=== PATIENT | male | born 1960 | race Caucasian/White ===

== ENCOUNTER 2021-09-27 08:32 | Day surgery (SDC) | payer BC ==
[~2021-09-27 08:32] MED LIST: Lactated Ringers 1,000 ML IV SCH; Sodium Chloride 0.9% 10 ML Syringe FLUSH PRN
[2021-09-27] MEDS ORDERED: Lactated Ringers 1,000 ML IV SCH (09:00)
[2021-09-27] MEDS ORDERED: fentaNYL 100 MCG/2 ML SDV ONE (09:30)
[2021-09-27] MEDS ORDERED: Propofol 200 MG/20 ML SDV ONE ×2 (09:30→12:14)
[2021-09-27 12:47] VITALS: BP 148/88; PULSE 58
--- NOTE | 2021-09-28 09:42 | OR ---
DATE OF SURGERY: 09/27/2021. REFERRING PROVIDER: Sheela Hall MD PRE-OPERATIVE DIAGNOSES: History of colon polyps. Last colonoscopy was 02/2016 and just revealed some sigmoid diverticulosis. POST-OPERATIVE DIAGNOSES: 1. 8 mm and 5 mm cecal polyps, both removed using hot snare. 2. Moderate sigmoid diverticulosis. 3. Normal-appearing distal ileum. PROCEDURE: Colonoscopy with polypectomy x2 using hot snare. SURGEON: Ced Hylton M.D. ANESTHESIA: Monitored anesthesia care. BOWEL PREP: Fair to good. Hector is a 61-year-old male who was brought to the endoscopy suite after discussing risks and benefits of the procedure. Informed consent was obtained for conscious sedation and colonoscopy with or without biopsy and/or polypectomy. We also discussed possibility of missed lesions. Pre-procedure exam was unremarkable. IV, oxygen, and monitors were placed. The patient was placed in the left lateral decubitus position. Sedation was administered and a digital rectal exam was performed and unremarkable. Colonoscope was passed into the rectum and slowly advanced all the way to the cecum. Cecum was viewed and photographed. Ileocecal valve was intubated and distal ileum was normal in appearance. Within the cecum, there was noted to be 8 mm polyp and 5 mm polyp, both removed using hot snare. The colonoscope was slowly withdrawn and the mucosa was closed observed in a direct circumferential manner. The ascending colon was unremarkable. The transverse colon was unremarkable. The descending colon was unremarkable. The sigmoid colon revealed moderate sigmoid diverticulosis. Retroflexion was performed and rectal mucosa was unremarkable. Scope was removed. The patient tolerated the procedure well. The patient was monitored until that baseline status. Discharge instructions were reviewed and the patient was discharged in good condition. COMPLICATIONS: None. ESTIMATED BLOOD LOSS: About 1 mL. RECOMMENDATIONS/FOLLOW-UP: We will await results of path report to determine ideal followup interval. I would like to kindly thank Sheela Hall MD, for this referral. DMB: 09/27/2021 14:32:21 MODL: 09/27/2021 21:16:14 /[id number]
== END 2021-09-27 13:35 | disposition home or self-care (01) ==
LOC: VM.SDS 08:32
PROVIDERS: ATTEND Family Medicine
DX: D12.0 Benign neoplasm of cecum (principal); K57.30 Diverticulosis of large intestine without perforation or abscess without bleeding; G47.33 Obstructive sleep apnea (adult) (pediatric); E66.9 Obesity, unspecified; E78.00 Pure hypercholesterolemia, unspecified; Z79.899 Other long term (current) drug therapy; Z79.82 Long term (current) use of aspirin; Z68.34 Body mass index [BMI] 34.0-34.9, adult
CPT/HCPCS: 00811; J2704; J3010; J7120